=== PATIENT | female | born 1940 | race Caucasian/White ===

== ENCOUNTER 2016-11-15 06:16 | Day surgery (SDC) | payer MEDICARE, OTHER ==
[2016-11-12 11:58] LABS: HEMATOCRIT 39.7 % (36.0-48.0); HEMOGLOBIN 12.9 g/dL (12.0-16.0)
[2016-11-12 12:25] LABS: A/G RATIO 1.4 (0.7-1.9); ALBUMIN 4.5 G/DL (3.5-5.0); BUN (BLOOD UREA NITROGEN) 16 MG/DL (6-23); CALCIUM, SERUM 9.5 MG/DL (8.5-10.4); CHLORIDE, SERUM 105 MMOL/L (96-112); CO2 (CARBON DIOXIDE) 30 MMOL/L (24-34); CREATININE 0.82 MG/DL (0.55-1.02); GFR AFRICAN AMERICAN 82 ML/MIN (>=60); GFR NON AFRICAN AMERICAN 70 ML/MIN (>=60); GLOBULIN 3.3 G/DL (2.5-4.1); GLUCOSE, SERUM 102 MG/DL (60-99); POTASSIUM, SERUM 4.2 MMOL/L (3.5-5.3); SGOT(AST) 18 U/L (5-40); SGPT(ALT) 35 U/L (5-65); SODIUM, SERUM 142 MMOL/L (135-148); TOTAL BILIRUBIN 0.6 MG/DL (0-1.2); TOTAL PROTEIN 7.8 G/DL (6.0-8.5)
[2016-11-12 12:26] LABS: ALKALINE PHOSPHATASE 49 U/L (45-117)
--- NOTE | ~2016-11-15 | OP ---
Record Of Operation [facility] [address] [place]. [address] NAME: AUDRA REYES : 44 STATUS : REG [facility] PAT#: [id number] AGE: 76 ADM/REG DATE : 11/15/16 MR#: [id number] REPORT SERV DATE: 11/15/16 DICTATED BY: OCTAVIANO VERDUGOCHRIS S DATE: 11/15/16 REPORT STATUS : Draft TRANSCRIBED BY: MODL DATE: 11/15/16 DATE OF PROCEDURE: REASON FOR SURGERY: This 76-year-old patient presents with a fairly large tumor in the upper outer quadrant of her right breast and relation to a relatively small breast. She has been counseled extensively and presented at the weekly breast conference. She will undergo breast preservation, but it is anticipated that there will be a significant dimpling affect due to the proximity of this large tumor to the skin. Mastectomy would certainly be appropriate and probably would avoid postoperative radiation therapy, but the patient is quite interested in breast preservation. PREOPERATIVE DIAGNOSIS: Carcinoma of the right breast. POSTOPERATIVE DIAGNOSIS: Carcinoma of the right breast. SURGEON: Chris Brumfield M.D. SURGERY PERFORMED: [place] node localization followed by right breast segmentectomy and sentinel node resection. DESCRIPTION OF PROCEDURE: The patient was initially injected in the nuclear medicine facility. She was taken to the operating room, and under general anesthesia, she was prepped and draped in the supine position in the usual sterile fashion. A curvilinear incision was made in the upper-outer quadrant over the palpable mass. Dissection was carried into the fatty tissue and flaps were created within the fatty plane. There was a broad-based area of tumor encroachment on the fatty tissue for distance of several centimeters requiring undermining of the skin for a considerable distance. A 3-dimensional excision down to the muscle was performed. The specimen was removed and oriented for pathology. Initial sectioning reveals the proximity to the fatty tissue and this was expected and acceptable for breast preservation. The wound was irrigated and hemostasis was obtained. The wound was closed with two layers of Monocryl. Attention was then turned to the right axilla. With direction with the Gamma probe, a small curvilinear incision was made and vertical dissection was carried down to a singly active node. It was removed with counts and background as per the surgical log book. The wound was irrigated and hemostasis was obtained. The wound was closed with two layers of Monocryl. The patient tolerated the procedure well without complications. ESTIMATED BLOOD LOSS: Less than 10 mL. SPONGE COUNT: Correct. Record Of Operation [address] [place]. [address] NAME: AUDRA REYES : 44 STATUS : REG [facility] PAT#: [id number] AGE: 76 ADM/REG DATE : 11/15/16 MR#: [id number] REPORT SERV DATE: 11/15/16 DICTATED BY: CHRIS BRUMFIELD JR. DATE: 11/15/16 REPORT STATUS : Draft TRANSCRIBED BY: ANNA DATE: 11/15/16 MR/ANNA Chris Brumfield Jr., M.D. / [id number] CC: Garima Rain Jr., M.D. [facility]
[~2016-11-15 06:16] MED LIST: ASAB PO; ATEN25 PO; CALTRA600D PO; COZ25 PO; ESTROVEN; FISH-EPA1000 MG PO; FORTAMET500 MG PO; LIPITOR20 PO; LOFIBRA54 MG PO; NIACIN 500 PO
[2017-03-26] MEDS ORDERED: CALTRA600D PO (14:04)
[2017-03-26] MEDS ORDERED: MIRALAX POWDER1 PKT PO (14:08)
== END 2016-11-15 15:54 | disposition home or self-care (01) ==
LOC: SDC 06:16
PROVIDERS: Surgery Surgical Oncology
PROC: 07T50ZZ Resection of Right Axillary Lymphatic, Open Approach (ICD-10-PCS; 2016-11-15)
PROC: 0HTT0ZZ Resection of Right Breast, Open Approach (ICD-10-PCS; principal; 2016-11-15 07:45)
DX: C77.3 Secondary and unspecified malignant neoplasm of axilla and upper limb lymph nodes (principal); C50.911 Malignant neoplasm of unspecified site of right female breast; I10 Essential (primary) hypertension; E11.9 Type 2 diabetes mellitus without complications; Z90.49 Acquired absence of other specified parts of digestive tract; Z98.890 Other specified postprocedural states; Z90.710 Acquired absence of both cervix and uterus
CPT/HCPCS: 71020; 78195; 80053; 82962; 85014; 85018; 88307; 88342; 93005; A9270-GY; A9541; J0690; J2250; J2405; J3010